=== PATIENT | male | born 1950 | race Caucasian/White ===

== ENCOUNTER 2017-12-27 06:18 | Day surgery (SDC) | payer MEDICARE ==
[~2017-12-27] VITALS: Ht 180.3 cm; Wt 96.4 kg
[~2017-12-27 06:18] MED LIST: ASPI81 PO; HYDR25TA PO; SIMV-260 PO; SODIUM CHLORIDE 0.9% 1,000 ML IV ONE
[2017-12-27] MEDS ORDERED: LIDOCAINE HCL 4% 50 ML SOLUTION TP ONE (06:19)
[2017-12-27] MEDS ORDERED: BENZOCAINE 20% 50 MCG/SPRAY 57 GM TP ONE (06:19)
[2017-12-27] MEDS ORDERED: LIDOCAINE HCL 2% 30 ML JELLY TP ONE (06:19)
[2017-12-27] MEDS ORDERED: FAMO20 PO (06:39)
[2017-12-27] MEDS ORDERED: MONT10TA21 PO (06:39)
[2017-12-27] MEDS ORDERED: MIDAZOLAM HCL 2 MG/2 ML VIAL ONE (08:05)
[2017-12-27] MEDS ORDERED: FentaNYL CITRATE-PF 100 MCG/2 ML VIAL ONE (08:05)
[2017-12-27] MEDS ORDERED: MethylPREDNISolone SOD SUCC 125 MG/2 ML VIAL IVP ONE (09:00)
[2017-12-27] MEDS ORDERED: MethylPREDNISolone SOD SUCC 125 MG/2 ML VIAL ONE (09:13)
[2017-12-27] MEDS ORDERED: OXYGEN THERAPY IH SCH (20:00)
== END 2017-12-27 10:35 | disposition home or self-care (01) ==
LOC: SURGERY 06:18
PROVIDERS: ATTEND Internal Medicine Critical Care Medicine
DX: J38.4 Edema of larynx (principal); B37.0 Candidal stomatitis; J84.111 Idiopathic interstitial pneumonia, not otherwise specified; I10 Essential (primary) hypertension; M19.90 Unspecified osteoarthritis, unspecified site; E78.00 Pure hypercholesterolemia, unspecified; Z87.891 Personal history of nicotine dependence; Z79.82 Long term (current) use of aspirin; Z79.899 Other long term (current) drug therapy; Z98.890 Other specified postprocedural states
CPT/HCPCS: 31623; 31624; 71045; 87015; 87070; 87147; 87205; 87206; 87220; 88108; 88312; J2250; J2930; J3010; J7030